=== PATIENT | male | born 1945 | race Caucasian/White ===

== ENCOUNTER 2022-03-09 11:57 | Observation (INO) | payer MEDICARE, OTHER, SELFPAY ==
[2022-03-09] VITALS (35 sets, daily range): BP systolic 98–131; BP diastolic 52–82; PULSE 70–125; RESP 14–33; TEMP 36.4–36.7; O2SAT 91–96
--- NOTE | 2022-03-09 12:00 | DI.RAD_ITS ---
Exam(s) XR CHEST 2V PA LATERAL EXAM: XR CHEST 2V PA LATERAL CLINICAL HISTORY: ams TECHNIQUE: COMPARISON: No exams were available for comparison FINDINGS: Heart is not enlarged. 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 Lungs appear clear and normally expanded. No pleural effusion. IMPRESSION: No evidence of acute process. RADIATION DOSE DELIVERED: Total DLP
--- NOTE | 2022-03-09 12:00 | RT.EKG_ITS ---
APPROVED REPORT Exam: Resting ECG Reason for Exam: ams Patient Location: E HR:110 bpm ECG Measurements Heart Rate 110 AXIS SC [id number] P [id number] QRSd 79 QRS 267 QT 325 T 59 QTc 440 Conclusion Atrial fibrillation...V-rate 84-134, irreg A-activity Inferior infarct, old...Q >35mS, II III aVF afib, rvr, left axis, non ischemic
--- NOTE | 2022-03-09 12:00 | DI.CT_ITS ---
Exam(s) CT HEAD WO EXAM: CT HEAD WO CLINICAL HISTORY: ams. TECHNIQUE: Imaging Protocol: Axial computed tomography images with coronal and sagittal reformatted images were created and reviewed COMPARISON: CR XR CHEST 2V PA LATERAL from 03/09/2022 FINDINGS: There is moderate generalized cerebral atrophy. No evidence of acute intracranial hemorrhage, mass effect, or midline shift. The orbital structures are unremarkable. The temporal bone structures appear intact. Calvarium: Normal. Visualized Paranasal sinuses/Mastoids: Clear. IMPRESSION: No evidence of acute intracranial process. RADIATION DOSE DELIVERED: 778.68mGy.cm Total DLP 778.68mGy.cm Total DLP !Error CTDIvol DATA REPOSITORY: All CT scans at this facility are submitted to the National Radiology Data Registry (NRDR) Dose Index Registry (DIR) with the [employer] (ACR). RADIATION OPTIMIZATION: All CT scans at this facility use at least one of these dose optimization te chniques: automated exposure control; mA and/or kV adjustment per patient size (includes targeted exa ms where dose is matched to clinical indication); or iterative reconstruction.
--- NOTE | 2022-03-09 12:16 | W.ED.GENAD ---
Discharge Plan Disposition Patient Disposition: HOME Condition: Improving Discharge Details Chief Complaint: AMS/LOC Clinical Impression: A-fib, Altered mental state, Lung mass ED Provider: Parviz Cole Home Meds and New Rx's Prescriptions: No Action aspirin 81 mg Capsule 81 mg DAILY Brilinta 60 mg Tablet 60 mg DAILY Discharge Instructions Instructions: A-fib (Atrial Fibrillation) (ED), Altered Mental Status (ED) Additional Instructions: Please follow-up with your primary care physician, your behavioral geneticist as well as a neurologist when you return to [place]. Please discuss the findings of your evaluation today which include atrial fibrillation and a left lung mass. Please return to the emergency department if you have any worsening symptoms Medical Decision Making 76-year-old male presents with acute onset confusion approximately 1 hour before arrival, alert to self and to location however is not alert to the year, cranial nerves II through XII intact 5/5 strength upper EXTR and lower extremities, fingerstick normal in the field, no blood thinner use per EMS, no signs of trauma, patient resting comfortably afebrile nontoxic however does appear globally confused. Consider TIA versus metabolic derangement versus delirium in the setting of infection such as viral syndrome or UTI versus pneumonia versus must consider CVA versus less likely intracranial hemorrhage versus toxicologic process. Screening labs imaging EKG close reassessment disposition pending results 16: 06 patient was comfortably no acute distress calm cooperative more oriented than on arrival. Of note patient was in A. fib RVR on arrival. Was given diltiazem and fluids now he is rate controlled in the 90s to low 100. Chest pain-free no shortness of breath. No headache no nausea no vomiting. Neurologic exam intact without deficit. CT CTA head and neck largely unremarkable chronic appearing vertebral stenosis. Incidental finding of left upper lung mass. Patient endorses is that he has known about this lung mass and has follow-up in [place]. He also is in consultation with a behavioral geneticist and may be receiving a cardiac ablation in the coming weeks. Patient is adamant that he does not want to stay in the hospital and wants to go home to [place] to follow-up. Given home care instructions and return precautions. Patient family numbers here to drive him. HPI General Date/Time Provider Initiated Documentation: 03/09/22 12:01. HPI Narrative: 76-year-old male unknown past medical history brought in by EMS, currently traveling with his girlfriend who was driving the car, proxy 1 hour ago patient became confused, patient initially refused transport; patient denies current complaints denies headache or chest pain denies shortness of breath. Fingerstick in the field 120s. No blood thinners per EMS. Related Data Home Medications Medication Instructions Recorded Confirmed aspirin 81 mg capsule 81 mg DAILY 03/09/22 03/09/22 ticagrelor 60 mg tablet (Brilinta) 60 mg DAILY 03/09/22 03/09/22 Allergies Allergy/AdvReac Type Severity Reaction Status Date / Time No Known Allergies Allergy Unverified 03/09/22 12:50 Review of Systems Narrative: Review of Systems Constitutional: Confusion Eyes: negative ENT: negative Cardiovascular: negative Respiratory: negative Gastrointestinal: negative : negative Musculoskeletal: negative Skin: negative Neurologic: Confusion Psych: negative PFSH All Active Problems (Updated 03/09/22 @ 16:09 by Parviz Cole MD) A-fib (Chronic) Altered mental state (Acute) Lung mass (Acute) Social History Smoking/Tobacco Use Status: Current every day Tobacco Type: cigarettes Smoking risk assessment performed?: Yes Alcohol Intake: never Drug use: Never Substance use type: does not use Do you feel safe at home: Yes Do you feel safe in your relationship?: Yes Exam Narrative Exam Narrative: Physical Examination General: alert, awake, cooperative, resting comfortably, no acute distress HEENT: normocephalic, atraumatic; PERRL, EOM intact, conjunctiva normal; no nasal discharge; moist mucous membranes, oral and pharyngeal mucosa normal, tolerating secretions Neck: supple, trachea midline; full ROM Chest: normal to inspection Respiratory: normal respiratory effort, speaking in full sentences, clear to auscultation, no wheezing, rales or rhonchi Cardiac: regular rate, regular rhythm, S1S2 intact, no murmurs rubs or gallops GI: abdomen soft, non-tender, non-distended; no palpable mass or hepatosplenomegaly Skin: no lesions, rashes or trauma appreciated Neuro: Alert to self, alert to place, does not know the year, 5-5 strength upper and lower extremities, cranial nerves II to XII intact, no truncal ataxia Extremities: No signs of trauma no peripheral edema Psych: Appropriate mood and affect
[2022-03-09 12:38] LABS: Abs Immature Grans 0.02 10^3/uL (0.0-0.06); Absolute Basophil Count 0.03 10^3/uL (0.0-0.2); Absolute Eosinophil Count 0.01 10^3/uL (0.0-0.7); Absolute Lymphocyte Count 1.03 10^3/uL (1.2-3.4); Absolute Monocyte Count 0.99 10^3/uL (0.1-0.8); Basophils % 0.5; Eosinophils % 0.2; HGB 18.2 g/dL (13.5-17.5); Immature Grans % 0.3; Lymphocytes % 16.9; MCH 31.1 pg (27.0-33.0); MCV 89 fL (80-95); MPV 9.5 fL (8.0-11.0); Monocytes % 16.3; Neutrophils % 65.8; Platelet Count 153 10^3/uL (130-400); RBC 5.85 10^6/uL (4.36-5.78); RDW 12.8 % (11.8-14.1); WBC 6.08 10^3/uL (4.4-10.8)
--- NOTE | 2022-03-09 12:45 | DI.CT_ITS ---
Exam(s) CT BRAIN NECK CTA EXAM: CT BRAIN NECK CTA CLINICAL HISTORY: ams, new afib. TECHNIQUE: Imaging Protocol: Axial CT angiography was performed with multi-slice acquisition and mu lti-planar and/or 3D reconstructions. CONTRAST MATERIAL: Intravenous: Omnipaque 350 Contrast volume:structured data in ml COMPARISON: CR XR CHEST 2V PA LATERAL from 03/09/2022 FINDINGS: CT angiography of the cervical cranial region was performed according to the usual protocol with intr avenous infusion of 85 cc of Omnipaque 350.. Noncontrast CT of the head obtained earlier today showed cerebral atrophy but was otherwise unremarka ble.. There is a is 17 millimeter in diameter mass or consolidation of left lung apex, suspicious for tumor . No prior CT available for comparison. Please correlate clinically.. Visualized portions of thora cic aorta and pulmonary arterial circulation are unremarkable. There is no evidence of a cervical mas s or adenopathy. The tracheal laryngeal structures appear intact. The common carotid arteries appear intact bilaterally. At the carotid bifurcations bilaterally, ther e is moderate calcified atheromatous plaque with less than 50 percent luminal diameter stenosis of th e proximal internal carotid arteries bilaterally. Remainder of the cervical portions of internal car otid arteries appear intact bilaterally. The right vertebral artery origin is heavily calcified and is difficult to evaluate. Suspect greater than 50 percent luminal diameter stenosis. Left vertebral artery origin also partially calcified bu t grossly of normal diameter. No additional vertebral artery stenoses in the cervical region.. Intracranial portions of the internal carotid arteries appear of normal diameter except for mild athe romatous plaque formation causing less than 50 percent luminal diameter stenosis in the cavernous por tions of the internal carotid artery bilaterally. With no evidence of aneurysm or dissection. Intracranial vertebral arteries and basilar artery appear normal with no evidence of aneurysm, stenos is or dissection. No aneurysm identified in the region of the [id number]. The anterior, middle, and posterior cer ebral arteries and major branches appear intact with no evidence of aneurysm, stenosis, or dissection . No enhancing brain lesion identified on 5 minutes delayed images.. IMPRESSION: Moderate atheromatous disease. Indeterminate but probable greater than 50 percent luminal diameter s tenosis proximal right vertebral artery. Less than 50 percent diameter stenosis of bilateral proxima l internal carotid arteries and cavernous portions of internal carotid arteries. Left apical lung mass is noted and appears to be an unexpected finding, please correlate clinically. Unexpected finding of left apical lung mass, suspicious for carcinoma although could be infectious in nature. This finding was discussed with the ER physician. RADIATION DOSE DELIVERED: 2,070.79mGy.cmTotal DLP 2,070.79mGy.cm Total DLP !Error CTDIvol DATA REPOSITORY: All CT scans at this facility are submitted to the National Radiology Data Registry (NRDR) Dose Index Registry (DIR) with the [employer] (ACR). RADIATION OPTIMIZATION: All CT scans at this facility use at least one of these dose optimization te chniques: automated exposure control; mA and/or kV adjustment per patient size (includes targeted exa ms where dose is matched to clinical indication); or iterative reconstruction.
[2022-03-09 12:51] LABS: INR 1.2 (0.9-1.1); PTT Activated 27.5 sec (21.0-27.5); Prothrombin Time 11.8 sec (9.3-11.0)
[2022-03-09] MEDS: dilTIAZem 25 MG/5 ML VIAL 10 MG IVP (12:57)
[2022-03-09] MEDS: Normal Saline 500 ML 1000 ML IV (12:57)
[2022-03-09 13:04] LABS: ALT 26 U/L (16-63); AST 27 U/L (15-37); Albumin 3.4 g/dL (3.4-5.0); Alkaline Phosphatase 63 U/L (46-116); Anion Gap 9.5 mmol/L (3-11); BUN 17 mg/dL (7-18); Bilirubin, Total 0.5 mg/dL (0.2-1.0); CO2 24.5 mmol/L (21.0-32.0); CREATININE 1.2 mg/dL (0.70-1.30); Calcium 8.4 mg/dL (8.5-10.1); Chloride 98 mmol/L (98-107); ETHANOL BLOOD < 3.0 mg/dL (<10); Estimated GFR 62.67 (mL/min/1.73m2); Glucose 85 mg/dL (74-106); Lipase 33 U/L (73-393); Potassium 4.3 mmol/L (3.5-5.1); Sodium 132 mmol/L (136-145); TSH (W/Ref FT4) 3.98 uIU/mL (0.36-3.74); Troponin I < 50 ng/L (<or=60)
[2022-03-09 13:12] LABS: Salicylate 3.5 mg/dL (<2.8)
[2022-03-09 13:15] LABS: Acetaminophen < 2 ug/mL (10-30)
[2022-03-09 13:20] LABS: FREE T4 1.45 ng/dL (0.76-1.46)
[2022-03-09] MEDS: Omnipaque 350 MG/ML 100 ML BTL IJ (15:11)
[2022-03-09] MEDS: Normal Saline Flush 10 ML SYR IVP ×2 (15:13→19:29)
[2022-03-09 15:47] LABS: Bilirubin Negative (Negative); Blood Trace-intact (Negative); Clarity Clear (Clear); Glucose Negative (Negative); Ketones 40 mg/dL (Negative); Leukocyte Esterase Negative (Negative); Nitrite Negative (Negative); Specific Gravity 1.025 (1.005-1.025); Urobilinogen 0.2 EU/dL (Up TO 0.2)
[2022-03-09 16:11] LABS: *AMPHETAMINES SCREEN URINE Negative (Negative); *BARBITURATES SCREEN URINE Negative (Negative); *BENZODIAZEPINES SCREEN URINE Negative (Negative); Cannabinoids THC Negative (Negative); Cocaine Screen,Urine Negative (Negative); METHADONE URINE SCREEN Negative (Negative); OPIATES URINE SCREEN Negative (Negative); Tricyclic Antidepressants Negative (Negative)
[2022-03-09 16:18] LABS: Troponin I 121 ng/L (<or=60)
[2022-03-09 16:29] LABS: Bacteria Negative HPF (Negative); C & S Indicated? No; Crystals Negative HPF (Negative); Epithelial Cells Negative HPF (Negative); Mucus Trace (Negative); RBC 0-2 HPF (0-2); WBC 0-2 HPF (0-5)
[2022-03-09 16:58] LABS: Source Nasal/Nares
[2022-03-09] MEDS: dilTIAZem 25 MG/5 ML VIAL (16:58)
[2022-03-09] MEDS: dilTIAZem 25 MG/5 ML VIAL 15 MG IVP (16:58)
[2022-03-09] MEDS: Aspirin 81 MG CHEW 324 MG CH (16:58)
[2022-03-09 17:32] LABS: COVID-19 PCR POSITIVE (Negative)
--- NOTE | 2022-03-09 18:28 | W.PM.HP.N ---
Date of service: 03/09/22 Time of Service: 18:28 Assessment and Plan Assessment and plan (1) A-fib: Status: Chronic Assessment and plan: Pt denies previous afib. Rate now controlled after 2 doses of IV diltiazem. Give oral diltiazem 30mg po BID. Monitor on telemetry. (2) Altered mental state: Status: Acute Assessment and plan: Resolved; maybe related to rapid heart rate vs Covid-19 CTA head and neck w/o acute findings. ? of TIA. (3) Lung mass: Status: Acute Assessment and plan: Known Pt states he has a follow up scheduled in [place] where he lives. (4) COVID-19: Status: Acute Assessment and plan: No supplemental O2 needs. He does endorse an intermittent nonproductive cough. He refuses steroids or nebulizer txs. History of Present Illness History of Present Illness Chief Complaint: Confusion Narrative: This is a 76 yo male with a PMH of lung mass, COPD. He is on no medications for COPD. He is on Brilinta. He was brought to the ED by EMS. Appx 1 hour prior to arrival he was traveling in a car with his girlfriend when she noted he appeared confused. EMS notified. In the field blood glucose was 120's. EKG showed a HR of 110 and atrial fibrillation. HR did fluctuate higher and a dose of IV Diltiazem administered with good results initially. He did require another 10mg IV and his HR upon arrival to the med-surg unit was in the 70's. He endorses chronic shortness of air with exertion. No CP/palpitations noted. Denies h/o afib. CT and CTA head and neck unremarkable. An incidental finding of a left upper lung mass was noted. Pt endorsed knowing about this and has a f/u in [place], where he lives, for evaluation. Review of Systems All systems reviewed & are unremarkable except as noted in HPI and below PFSH All Active Problems (Updated 03/09/22 @ 18:37 by Parviz Martin MD) COVID-19 (Acute) A-fib (Chronic) Altered mental state (Acute) Lung mass (Acute) Social History Smoking/Tobacco Use Status: Current every day Tobacco Type: cigarettes Smoking risk assessment performed?: Yes Alcohol Intake: never Drug use: Never Substance use type: does not use Do you feel safe at home: Yes Do you feel safe in your relationship?: Yes Meds Allergies and Home Medications Allergies Allergy/AdvReac Type Severity Reaction Status Date / Time No Known Allergies Allergy Unverified 03/09/22 12:50 Home Medications Medication Instructions Recorded Confirmed Type aspirin 81 mg capsule 81 mg DAILY 03/09/22 03/09/22 History ticagrelor 60 mg tablet (Brilinta) 60 mg DAILY 03/09/22 03/09/22 History Exam Narrative Exam Narrative: Elderly male. In bed eating dinner. Const General: no acute distress Nutritional Appearance: average body habitus Orientation: alert and oriented x3 Eyes General: appearance normal, both eyes and all related structures Sclera: sclerae normal Neck Neck: normal visual inspection and no JVD Resp Effort & Inspection: normal respiratory effort Auscultation: clear to auscultation bilaterally Cardio Rhythm: abnormal rhythm (irreg irreg) GI Palpation: soft and nontender Auscultation: normal bowel sounds Skin General skin exam: no rashes or lesions noted Extrem General: no pedal edema and no calf tenderness Results Labs Result diagrams: 03/09/22 12:30 03/10/22 05:58 Labs: Laboratory Results - last 24 hr 03/09/22 03/09/22 03/09/22 12:30 12:30 12:30 WBC 6.08 RBC 5.85 H Hgb 18.2 H Hct 52.0 H MCV 89 MCH 31.1 MCHC 35.0 RDW 12.8 Plt Count 153 MPV 9.5 Immature Gran % 0.3 Neutrophils % 65.8 Lymphocytes % 16.9 Monocytes % 16.3 Eosinophils % 0.2 Basophils % 0.5 Nucleated RBC % 0.0 Absolute Neutrophils 4.00 Absolute Lymphocytes 1.03 L Absolute Monocytes 0.99 H Absolute Eosinophils 0.01 Absolute Basophils 0.03 PT INR APTT Sodium 132 L Potassium 4.3 Chloride 98 Carbon Dioxide 24.5 Anion Gap 9.5 BUN 17 Creatinine 1.2 Est GFR (CKD-EPI 2020) 62.67 Glucose 85 Calcium 8.4 L Total Bilirubin 0.5 AST 27 ALT 26 Alkaline Phosphatase 63 Troponin I < 50 Total Protein 7.0 Albumin 3.4 Lipase 33 TSH 3.98 H Free T4 1.45 Urine Color Urine Clarity Urine pH Ur Specific Crawford Urine Protein Urine Ketones Urine Blood Urine Nitrite Urine Bilirubin Urine Urobilinogen Ur Leukocyte Esterase Urine RBC Urine WBC Ur Epithelial Cells Urine Crystals Urine Bacteria Urine Casts Urine Mucus Ur Culture Indicated? Urine Glucose Salicylates 3.5 Urine Opiates Screen Urine Methadone Screen Acetaminophen < 2 Ur Barbiturates Screen Ur Tricyclics Screen Ur Amphetamines Screen U Benzodiazepines Scrn Urine Cocaine Screen Ur THC Screen Ethyl Alcohol < 3.0 COVID-19 Source SARS-CoV-2 (PCR) 03/09/22 03/09/22 03/09/22 12:30 15:35 15:38 WBC RBC Hgb Hct MCV MCH MCHC RDW Plt Count MPV Immature Gran % Neutrophils % Lymphocytes % Monocytes % Eosinophils % Basophils % Nucleated RBC % Absolute Neutrophils Absolute Lymphocytes Absolute Monocytes Absolute Eosinophils Absolute Basophils PT 11.8 H INR 1.2 H APTT 27.5 Sodium Potassium Chloride Carbon Dioxide Anion Gap BUN Creatinine Est GFR (CKD-EPI 2020) Glucose Calcium Total Bilirubin AST ALT Alkaline Phosphatase Troponin I 121 H* Total Protein Albumin Lipase TSH Free T4 Urine Color Urine Clarity Urine pH Ur Specific Crawford Urine Protein Urine Ketones Urine Blood Urine Nitrite Urine Bilirubin Urine Urobilinogen Ur Leukocyte Esterase Urine RBC Urine WBC Ur Epithelial Cells Urine Crystals Urine Bacteria Urine Casts Urine Mucus Ur Culture Indicated? Urine Glucose Salicylates Urine Opiates Screen Negative Urine Methadone Screen Negative Acetaminophen Ur Barbiturates Screen Negative Ur Tricyclics Screen Negative Ur Amphetamines Screen Negative U Benzodiazepines Scrn Negative Urine Cocaine Screen Negative Ur THC Screen Negative Ethyl Alcohol COVID-19 Source SARS-CoV-2 (PCR) 03/09/22 03/09/22 15:38 16:50 WBC RBC Hgb Hct MCV MCH MCHC RDW Plt Count MPV Immature Gran % Neutrophils % Lymphocytes % Monocytes % Eosinophils % Basophils % Nucleated RBC % Absolute Neutrophils Absolute Lymphocytes Absolute Monocytes Absolute Eosinophils Absolute Basophils PT INR APTT Sodium Potassium Chloride Carbon Dioxide Anion Gap BUN Creatinine Est GFR (CKD-EPI 2020) Glucose Calcium Total Bilirubin AST ALT Alkaline Phosphatase Troponin I Total Protein Albumin Lipase TSH Free T4 Urine Color Yellow Urine Clarity Clear Urine pH 6.0 Ur Specific Crawford 1.025 Urine Protein 30 H Urine Ketones 40 H Urine Blood Trace-intact H Urine Nitrite Negative Urine Bilirubin Negative Urine Urobilinogen 0.2 Ur Leukocyte Esterase Negative Urine RBC 0-2 Urine WBC 0-2 Ur Epithelial Cells Negative Urine Crystals Negative Urine Bacteria Negative Urine Casts >50 Hyaline Urine Mucus Trace Ur Culture Indicated? No Urine Glucose Negative Salicylates Urine Opiates Screen Urine Methadone Screen Acetaminophen Ur Barbiturates Screen Ur Tricyclics Screen Ur Amphetamines Screen U Benzodiazepines Scrn Urine Cocaine Screen Ur THC Screen Ethyl Alcohol COVID-19 Source Nasal/Nares SARS-CoV-2 (PCR) POSITIVE A* Last Vital Signs Temp 36.7 C 03/09/22 16:19 Pulse 76 03/09/22 17:01 Resp 27 H 03/09/22 17:01 BP 98/64 L 03/09/22 17:01 Pulse Ox 92 03/09/22 17:01
[2022-03-09 20:48] LABS: Troponin I 227 ng/L (<or=60)
--- NOTE | 2022-03-09 21:00 | RT.EKG_ITS ---
APPROVED REPORT Exam: Resting ECG Reason for Exam: rising troponin Patient Location: I HR:94 bpm ECG Measurements Heart Rate 94 AXIS LA [id number] P [id number] QRSd 94 QRS 260 QT 362 T 61 QTc 453 Conclusion Atrial fibrillation...V-rate 80-103, irreg A-activity Inferior infarct, old...Q >35mS, II III aVF Consider anterior infarct...Q >30mS in V2-V5
[2022-03-10 00:28] LABS: Troponin I 228 ng/L (<or=60)
[2022-03-10 02:27] VITALS: BP 101/70; PULSE 90; RESP 16; TEMP 36.6; O2SAT 91
[2022-03-10 06:19] VITALS: BP 133/76; PULSE 83; RESP 16; TEMP 36.6; O2SAT 93
[2022-03-10 06:51] LABS: BUN 16 mg/dL (7-18); CREATININE 1.1 mg/dL (0.70-1.30); Calcium 8.2 mg/dL (8.5-10.1); Chloride 101 mmol/L (98-107); Estimated GFR 69.57 (mL/min/1.73m2); Glucose 79 mg/dL (74-106); Potassium 3.9 mmol/L (3.5-5.1); Sodium 135 mmol/L (136-145)
[2022-03-10 07:00] VITALS: PULSE 74
[2022-03-10 08:25] VITALS: BP 131/58; PULSE 74; RESP 18; TEMP 36.4; O2SAT 94
[2022-03-10] MEDS: Aspirin E.C. 81 MG TABEC PO (09:40)
[2022-03-10] MEDS: dilTIAZem 30 MG TAB PO (09:45)
--- NOTE | 2022-03-10 10:49 | DSE_ITS ---
Date of service: 03/10/22 Time of Service: 10:49 DS: Diagnosis Discharge Diagnosis (1) A-fib: Status: Chronic Asessment and Plan: No known history. Controlled after 2 doses of IV diltiazem. He was administered diltiazem 30mg BID; 2 doses given. Oral diltiazem not continued. This is an issue he will need to follow up with. He does not want to remain as an inpatient. Needs an echocardiogram and repeat EKG to observe whether or not he is still in afib or not and whether an ongoing rate controlling medication is warranted. Also a candidate for anticoagulant. (2) Altered mental state: Status: Acute Asessment and Plan: Not altered upon admission. Related to afib with RVR vs Covid-19 infection. (3) Lung mass: Status: Acute Asessment and Plan: Known with planned f/u in [place] where he resides. (4) COVID-19: Status: Acute Asessment and Plan: No supplemental O2 needs. He refuses any treatment Mild cough; likely mild COPD exacerbation. He has accepted an albuterol MDI which he does use on rare occassion but does not currently have one with him. Discharge Plan Disposition Patient Disposition: HOME Condition: Stable Discharge Details Reason For Visit: Atrial fibrillation with RVR Admit Date/Time: 03/09/22 16:58 Admit Provider: Parviz Martin Attending Provider: Parviz Martin Primary Care Provider: Unknown,Unknown Hospital Course Hospital Course: This is a 76 yo male with a PMH of lung mass, COPD. He is on no medications for COPD. He is on Brilinta. ? He was brought to the ED by EMS.? Appx 1 hour prior to arrival he was traveling in a car with his girlfriend when she noted he appeared confused.? EMS notified. In the field blood glucose was 120's.? EKG showed a HR of 110 and atrial fibrillation.? HR did fluctuate higher and a dose of IV Diltiazem administered with good results initially.? He did require another 10mg IV and his HR upon arrival to the med-surg unit was in the 70's. He endorses chronic shortness of air with exertion.? No CP/palpitations noted.? Denies h/o afib. CT and CTA head and neck unremarkable. An incidental finding of a left upper lung mass was noted.? Pt endorsed knowing about this and has a f/u in [place], where he lives, for evaluation. ? See Diagnosis F/U with PCP upon return to his home. ? Home Meds and New Rx's Prescriptions: New albuterol sulfate [Ventolin HFA] 90 mcg/actuation Hfa Aerosol Inhaler 2 puff inhalation Q4H PRN PRNQty: 0 0RF Continued aspirin 81 mg Capsule 81 mg DAILY Brilinta 60 mg Tablet 60 mg DAILY Discharge Instructions Instructions: A-fib (Atrial Fibrillation) (ED), Altered Mental Status (ED), COVID-19 (Coronavirus Disease 2019) (DC) Additional Instructions: Please follow-up with your primary care physician, your sterile processing manager as well as a neurologist when you return to [place]. Please discuss the findings of your evaluation today which include atrial fibrillation and a left lung mass. Please return to the emergency department if you have any worsening symptoms Activity:: Activity as Tolerated Equipment/Supplies:: No Equipment Needed Diet:: Resume usual home diet Discharge Orders Discharge Orders: Discharge Order (Routine); Ordered 03/10/22 Ordered By: Parviz Martin DS: Summary Time Spent with Patient providing and/or coordinating discharge services: Greater than 30 minutes Status at Discharge Functional status at discharge: independent ambulation Overall status at discharge: patient is progressing back to baseline Mental Status: mental status grossly normal Speech and Movement: speech clear Mood: congruent mood Affect: normal affect Exam Narrative Exam Narrative: Elderly male. Lying in bed. States he is ready to be discharged. Const General: no acute distress Nutritional Appearance: average body habitus Orientation: alert and oriented x3 Eyes General: appearance normal, both eyes and all related structures Sclera: sclerae normal Neck Neck: normal visual inspection and no JVD Resp Effort & Inspection: normal respiratory effort Auscultation: clear to auscultation bilaterally Cardio Rhythm: abnormal rhythm (irreg irreg) GI Palpation: soft and nontender Auscultation: normal bowel sounds Skin General skin exam: no rashes or lesions noted Extrem General: no pedal edema and no calf tenderness Psych Mental Status: mental status grossly normal Speech and Movement: speech clear Mood: congruent mood Affect: normal affect DS: Data Vitals/I&O Vitals and I&O: Vital Signs Temperature 36.4 C L 03/10/22 08:25 Temperature Source Tympanic 03/10/22 08:25 Pulse 74 03/10/22 08:25 Pulse Rhythm Irregular 03/10/22 09:38 Pulse 81 03/09/22 17:01 Respiratory Rate 18 03/10/22 08:25 Respiratory Effort 03/10/22 09:38 Respiratory Depth Normal 03/10/22 09:38 Respiratory Pattern Normal 03/10/22 09:38 Blood Pressure 131/58 L 03/10/22 08:25 Blood Pressure Mean 69 03/09/22 17:01 Blood Pressure Position Supine 03/09/22 12:32 Pulse Oximetry 94 03/10/22 08:25 Oxygen Delivery Method Room Air 03/10/22 08:25 Oxygen Flow Rate 0 03/10/22 08:25 Pain Level 0 03/10/22 08:25 Intake & Output 03/09/22 03/09/22 03/10/22 11:59 23:59 11:59 Intake Total 10 / 10 600 / 600 Output Total 500 / 500 Balance 100 / 100 Weight 71.1 kg Intake: IV 10 10 Oral 600 / 600 Output: Urine 500 / 500 Other: Urine Color Yellow Yellow Urine Appearance Clear Clear Urine Odor Normal Comment not measured. Stool Size Moderate Stool Characteristics Soft Formed Brown Voiding Methods Toilet Urinal Data Completed and Pending Labs on day of discharge: Labs from last 24 hours 03/10/22 03/09/22 03/09/22 05:58 23:48 20:10 WBC RBC Hgb Hct MCV MCH MCHC RDW Plt Count MPV Immature Gran % Neutrophils % Lymphocytes % Monocytes % Eosinophils % Basophils % Nucleated RBC % Absolute Neutrophils Absolute Lymphocytes Absolute Monocytes Absolute Eosinophils Absolute Basophils PT INR APTT Sodium 135 L Potassium 3.9 Chloride 101 Carbon Dioxide 27.0 Anion Gap 7.0 BUN 16 Creatinine 1.1 Est GFR (CKD-EPI 2020) 69.57 Glucose 79 Calcium 8.2 L Total Bilirubin AST ALT Alkaline Phosphatase Troponin I 228 H* 227 H* Total Protein Albumin Lipase TSH Free T4 Urine Color Urine Clarity Urine pH Ur Specific [place] Urine Protein Urine Ketones Urine Blood Urine Nitrite Urine Bilirubin Urine Urobilinogen Ur Leukocyte Esterase Urine RBC Urine WBC Ur Epithelial Cells Urine Crystals Urine Bacteria Urine Casts Urine Mucus Ur Culture Indicated? Urine Glucose Salicylates Urine Opiates Screen Urine Methadone Screen Acetaminophen Ur Barbiturates Screen Ur Tricyclics Screen Ur Amphetamines Screen U Benzodiazepines Scrn Urine Cocaine Screen Ur THC Screen Ethyl Alcohol COVID-19 Source SARS-CoV-2 (PCR) 03/09/22 03/09/22 03/09/22 16:50 15:38 15:38 WBC RBC Hgb Hct MCV MCH MCHC RDW Plt Count MPV Immature Gran % Neutrophils % Lymphocytes % Monocytes % Eosinophils % Basophils % Nucleated RBC % Absolute Neutrophils Absolute Lymphocytes Absolute Monocytes Absolute Eosinophils Absolute Basophils PT INR APTT Sodium Potassium Chloride Carbon Dioxide Anion Gap BUN Creatinine Est GFR (CKD-EPI 2020) Glucose Calcium Total Bilirubin AST ALT Alkaline Phosphatase Troponin I Total Protein Albumin Lipase TSH Free T4 Urine Color Yellow Urine Clarity Clear Urine pH 6.0 Ur Specific [place] 1.025 Urine Protein 30 H Urine Ketones 40 H Urine Blood Trace-intact H Urine Nitrite Negative Urine Bilirubin Negative Urine Urobilinogen 0.2 Ur Leukocyte Esterase Negative Urine RBC 0-2 Urine WBC 0-2 Ur Epithelial Cells Negative Urine Crystals Negative Urine Bacteria Negative Urine Casts >50 Hyaline Urine Mucus Trace Ur Culture Indicated? No Urine Glucose Negative Salicylates Urine Opiates Screen Negative Urine Methadone Screen Negative Acetaminophen Ur Barbiturates Screen Negative Ur Tricyclics Screen Negative Ur Amphetamines Screen Negative U Benzodiazepines Scrn Negative Urine Cocaine Screen Negative Ur THC Screen Negative Ethyl Alcohol COVID-19 Source Nasal/Nares SARS-CoV-2 (PCR) POSITIVE A* 03/09/22 03/09/22 03/09/22 15:35 12:30 12:30 WBC 6.08 RBC 5.85 H Hgb 18.2 H Hct 52.0 H MCV 89 MCH 31.1 MCHC 35.0 RDW 12.8 Plt Count 153 MPV 9.5 Immature Gran % 0.3 Neutrophils % 65.8 Lymphocytes % 16.9 Monocytes % 16.3 Eosinophils % 0.2 Basophils % 0.5 Nucleated RBC % 0.0 Absolute Neutrophils 4.00 Absolute Lymphocytes 1.03 L Absolute Monocytes 0.99 H Absolute Eosinophils 0.01 Absolute Basophils 0.03 PT 11.8 H INR 1.2 H APTT 27.5 Sodium Potassium Chloride Carbon Dioxide Anion Gap BUN Creatinine Est GFR (CKD-EPI 2020) Glucose Calcium Total Bilirubin AST ALT Alkaline Phosphatase Troponin I 121 H* Total Protein Albumin Lipase TSH Free T4 Urine Color Urine Clarity Urine pH Ur Specific [place] Urine Protein Urine Ketones Urine Blood Urine Nitrite Urine Bilirubin Urine Urobilinogen Ur Leukocyte Esterase Urine RBC Urine WBC Ur Epithelial Cells Urine Crystals Urine Bacteria Urine Casts Urine Mucus Ur Culture Indicated? Urine Glucose Salicylates Urine Opiates Screen Urine Methadone Screen Acetaminophen Ur Barbiturates Screen Ur Tricyclics Screen Ur Amphetamines Screen U Benzodiazepines Scrn Urine Cocaine Screen Ur THC Screen Ethyl Alcohol COVID-19 Source SARS-CoV-2 (PCR) 03/09/22 03/09/22 12:30 12:30 WBC RBC Hgb Hct MCV MCH MCHC RDW Plt Count MPV Immature Gran % Neutrophils % Lymphocytes % Monocytes % Eosinophils % Basophils % Nucleated RBC % Absolute Neutrophils Absolute Lymphocytes Absolute Monocytes Absolute Eosinophils Absolute Basophils PT INR APTT Sodium 132 L Potassium 4.3 Chloride 98 Carbon Dioxide 24.5 Anion Gap 9.5 BUN 17 Creatinine 1.2 Est GFR (CKD-EPI 2020) 62.67 Glucose 85 Calcium 8.4 L Total Bilirubin 0.5 AST 27 ALT 26 Alkaline Phosphatase 63 Troponin I < 50 Total Protein 7.0 Albumin 3.4 Lipase 33 TSH 3.98 H Free T4 1.45 Urine Color Urine Clarity Urine pH Ur Specific [place] Urine Protein Urine Ketones Urine Blood Urine Nitrite Urine Bilirubin Urine Urobilinogen Ur Leukocyte Esterase Urine RBC Urine WBC Ur Epithelial Cells Urine Crystals Urine Bacteria Urine Casts Urine Mucus Ur Culture Indicated? Urine Glucose Salicylates 3.5 Urine Opiates Screen Urine Methadone Screen Acetaminophen < 2 Ur Barbiturates Screen Ur Tricyclics Screen Ur Amphetamines Screen U Benzodiazepines Scrn Urine Cocaine Screen Ur THC Screen Ethyl Alcohol < 3.0 COVID-19 Source SARS-CoV-2 (PCR) PFSH All Active Problems (Updated 03/09/22 @ 18:37 by Parviz Martin MD) COVID-19 (Acute) A-fib (Chronic) Altered mental state (Acute) Lung mass (Acute) Social History Smoking/Tobacco Use Status: Current every day Tobacco Type: cigarettes Smoking risk assessment performed?: Yes Alcohol Intake: never Drug use: Never Substance use type: does not use Do you feel safe at home: Yes Do you feel safe in your relationship?: Yes
[2022-03-10 11:08] VITALS: BP 156/77; PULSE 73; RESP 17; TEMP 36.5; O2SAT 95
== END 2022-03-10 11:43 | disposition home or self-care (01) ==
LOC: ER 17:28 → MS 18:06
PROVIDERS: Student in an Organized Health Care Education/Training Program; Admitting Provider Family Medicine; Emergency Provider Emergency Medicine; Visit Provider Family Medicine
DX: I48.91 Unspecified atrial fibrillation (principal); R41.82 Altered mental status, unspecified; I65.01 Occlusion and stenosis of right vertebral artery; R91.8 Other nonspecific abnormal finding of lung field; I25.2 Old myocardial infarction; Z20.822 Contact with and (suspected) exposure to COVID-19; U07.1 COVID-19; J44.9 Chronic obstructive pulmonary disease, unspecified; Z79.899 Other long term (current) drug therapy; F17.210 Nicotine dependence, cigarettes, uncomplicated
CPT/HCPCS: 36415; 70496; 70498; 80048; 80053; 80307; 83690; 87635; 93005; 96361; 96374; 96376; 99284; 99285; 70450; 71046; 80320; 80329; 81003; 81015; 84439; 84443; 84484; 85025; 85610; 85730; 93010; 99217; 99220; G0378; J3490